=== PATIENT | female | born 1965 | race Caucasian/White ===

== ENCOUNTER → 2017-02-26 16:52 | Outpatient (CLI) | payer BC ==
[2014-12-25 13:51] VITALS: BMI 30.5
[~2017-02-26 16:52] MED LIST: AMBIEN5 MG PO; CLEOCIN HCL300 MG PO; COREG6.25 MG PO; COZAAR50 MG PO; FERREX 150 PLUS1 CAP PO; HYDROCODONE-APA1 TAB PO; K-TAB10 MEQ PO; LASIX20 MG PO; PERCOCET 10/3251 TA1 PO; PROZAC40 MG PO; ZERTEC; ZYRTEC10 MG PO
== END | disposition home or self-care (01) ==
LOC: D.MAMMO 15:45
DX: Z12.31 Encounter for screening mammogram for malignant neoplasm of breast (principal)

== ENCOUNTER 2017-09-17 15:31 | Emergency (ER) | payer BC ==
[2014-12-25 13:51] VITALS: BMI 30.5
[2017-09-17 16:28] LABS: BASOPHILS 0.1 % (0-2); EOSINOPHILS 0.5 % (0-7); HEMATOCRIT 41.4 % (36.0-48.0); HEMOGLOBIN 13.8 g/dL (12-16); IMMATURE GRANULOCYTES 0.4 % (0-5); LYMPHOCYTES 23.1 % (15-50); MCH 31.9 pg (26.0-34.0); MCHC 33.3 g/dL (31.0-37.0); MCV 95.8 fL (80.0-100.0); MEAN PLATELET VOLUME 11.4 fL (7.4-10.4); NEUTROPHILS 68.9 % (40-80); PLATELET COUNT 261 10x3/uL (130-400); RBC 4.32 10x6/uL (4.00-5.40); RDW 13.6 % (11.5-14.5); WBC 7.8 10x3/uL (4.8-10.8)
[2017-09-17 18:58] LABS: ALBUMIN 3.5 g/dL (3.4-5.0); ALKALINE PHOSPHATASE 103 U/L (46-116); ALT (SGPT) 82 U/L (10-68); CALC OSMOLALITY 273 mosm/kg (275-300); CALCIUM 9.1 mg/dL (8.5-10.1); CARBON DIOXIDE 23.5 mmol/L (21.0-32.0); CHLORIDE - SERUM 101 mmol/L (98-107); CREATINE KINASE 227 UL (21-215); CREATININE - SERUM 0.6 mg/dL (0.6-1.3); GLUCOSE 138 mg/dL (74-106); LIPASE 81 U/L (73-393); MAGNESIUM - SERUM 1.8 mg/dL (1.8-2.4); POTASSIUM - SERUM 5.5 mmol/L (3.5-5.1); PRO BNP 6636 pg/mL (0-125); PROTEIN - SERUM 7.9 g/dL (6.4-8.2); SODIUM 136 mmol/L (136-145); TROPONIN-I 0.017 ng/mL (0.000-0.060); UREA NITROGEN 13 mg/dL (7-18); eGFR NON AFRICAN AMERICAN > 90 mL/min (90-120)
[2017-09-17 19:00] LABS: CKMB 1.8 U/L (0.0-3.6)
== END 2017-09-17 19:50 | disposition home or self-care (01) ==
LOC: D.ER 15:31
PROVIDERS: Family Medicine
DX: I48.91 Unspecified atrial fibrillation (principal); I49.3 Ventricular premature depolarization

== ENCOUNTER 2019-06-17 01:31 | Observation (INO) | payer MEDICAID ==
[~2019-06-17] VITALS: Ht 157.5 cm; Wt 96.1 kg
[2019-06-17] VITALS (9 sets, daily range): BP systolic 114–177; BP diastolic 67–93; Ht 157.5 cm; Wt 96.1 kg
--- NOTE | ~2019-06-17 | HEMODYNAMI ---
PATIENT:GORGE MALDONADO MEDICAL RECORD: [id number] : 69 LOCATION:[facility] D.2116 ADMISSION DATE: 06/17/19 Generatedon:06/17/201914:39 Patient name: GORGE MALDONADO Patient #: [id number] SSN: [id number] : 1965 Date of study: 06/17/2019 Page: Of Hemodynamic Procedure Report Patient Data Patient Demographics Procedure consent was obtained First Name: GORGE Gender: Female Last Name: JOEL : 1965 Middle Initial: MOHAN Age: 53 year(s) Patient #: [id number] Race: SSN: [id number] Additional ID: [id number] Contact details Address: [place] [address] State: [place] City: [facility] Zip code: [address] Past Medical History Allergies Allergen Reaction Date Comments Reported Other allergy 06/17/2019 LATEX Admission Admission Data Admission Date: 06/17/2019 Admission Time: 3:06 Arrival Date: 06/17/2019 Arrival Time: 0:00 Room #: D.2117 Height (in.): 60.24 BSA: 1.9 (m2) Height (cm.): 153 BMI: 40.16 (kg/m2) Weight (lbs.): 207.24 Weight (kg.): 94 Lab Results Lab Result Date: 06/17/2019 Lab Result Time: 0:00 Biochemistry Name Units Result Min Max BUN mg/dl 23 --(----)-* 7 18 CK-MB ng/ml 4.1 --(----)*- 0 3.6 Creatinine mg/dl 1 --(--*-)-- 0.6 1.3 eGFR ml/min 61.83200 *-(----)-- 90 120 NONAFRICAN Troponin l ng/ml 0.251 --(----)-* 0 0.06 CBC Name Units Result Min Max Hematocrit % 36.4 *-(----)-- 42 54 Hemoglobin g/dl 11.8 *-(----)-- 13.5 17.5 Procedure Procedure Types Cath Procedure Diagnostic Procedure LHC Coronaries only Sedation Charges Moderate Sedation up to 15 minutes Procedure Description Procedure Date Procedure Date: 06/17/2019 Procedure Start Time: 14:26 Procedure End Time: 14:36 Procedure Staff Name Function Guillaume Wang MD Performing Physician Ciro Baptiste RT Monitor Deniz Powers RN Nurse Janeth Porras RT Scrub Procedure Data Cath Procedure Fluoroscopy Diagnostic fluoroscopy Total fluoroscopy Time: 4.3 time: 4.3 min min Diagnostic fluoroscopy Total fluoroscopy dose: dose: 282.15 mGy 282.15 mGy Contrast Material Contrast Material Type Amount (ml) Isovue 370 41 Entry Location Entry Primary Successful Side Size Upsize Upsize Entry Closure Succes sful Closure Location (Fr) 1 (Fr) 2 (Fr) Remarks Device Remarks Femoral Right 5 Fr 6 Fr Exoseal artery Short Diagnostic catheters Device Type Used For End Catheter Placement MULTIPACK Pigtail 5 Fr LV Angiography catheter MULTIPACK JL 4.0 5Fr Left Coronary catheter Angiography MULTIPACK 3DRC 5Fr Right Coronary catheter Angiography Procedure Complications No complications Procedure Medications Medication Administration Route Dosage 0.9% NaCl I.V. 100 ml/hr Oxygen etCO2 Nasal cannula 2 l/min Heparin Flush Bag added to field 2 bags (1000units/500ml NS) Lidocaine 2% added to field 20 Versed I.V. 2 mg Fentanyl I.V. 100 mcg Versed I.V. 1 mg Hemodynamics Rest BSA: 1.9 (m2) HGB: 11.8 (g/dl) O2 Consumption: Estimated: 258.4 (ml/min) O2 Cons umption indexed: Estimated:136 (ml/min/m) Heart Rate: 0 (bpm) Snapshots Pre Cath Intra NCS Post Cath Vital Signs Time Heart Resp SPO2 etCO2 NIBP (mmHg) Rhythm Pain Sedation Rate (ipm) (%) (mmHg) Status Level (bpm) 13:54:29 62 26 100 30.6 162/95(108) NSR 0 (11) 10(A) , No pain 13:59:00 54 14 98 26 127/83(111) NSR 0 (11) 10(A) , No pain 14:02:55 63 15 98 25.2 132/81(102) NSR 0 (11) 10(A) , No pain 14:06:55 60 15 98 25.2 131/72(103) NSR 0 (11) 10(A) , No pain 14:11:38 56 16 98 36.7 128/73(102) NSR 0 (11) 10(A) , No pain 14:16:10 59 15 98 36.7 140/76(100) NSR 0 (11) 10(A) , No pain 14:20:07 60 15 98 35.9 138/77(111) NSR 0 (11) 10(A) , No pain 14:24:03 58 14 99 15.3 132/86(108) NSR 0 (11) 10(A) , No pain 14:28:01 61 18 97 12.2 136/81(98) NSR 0 (11) 10(A) , No pain 14:31:58 58 12 98 14.5 111/70(90) NSR 0 (11) 9(A) , No pain 14:35:54 60 13 98 13.7 114/70(100) NSR 0 (11) 9(A) , No pain Medications Time Medication Route Dose Verified Delivered Reason Notes Eff ectiveness by by 13:52:33 0.9% NaCl I.V. 100 Deniz Deniz Per ml/hr Priya Powers physician RN RN 13:52:42 Oxygen etCO2 2 Deniz Deniz for low 02 Nasal l/min Lorigan Lorigan sats cannula RN RN 13:52:53 Heparin Flush added 2 Deniz Deniz used for Bag to bags Lorigan Priya procedure (1000units/500ml field RN RN NS) 13:53:04 Lidocaine 2% added 20ml Deniz Deniz for local to vial Lorigan Lorigan anesthetic field RN RN 14:20:37 Versed I.V. 2 mg Deniz Deniz for Lorigan Lorigan sedation RN RN 14:20:46 Fentanyl I.V. 100 Deniz Deniz for mcg Lorigan Lorigan sedation RN RN 14:28:01 Versed I.V. 1 mg Deniz Deniz for Lorigan Lorigan sedation RN clerical methods analyst Log Time Note 13:18:58 Informed consent obtained and on chart 13:27:15 Lab Result : CK-MB 4.1 ng/ml 13:27:15 Lab Result : Creatinine 1 mg/dl 13::15 Lab Result : BUN 23 mg/dl 13::15 Lab Result : eGFR NONAFRICAN 61.58707 ml/min 13::15 Lab Result : Troponin l 0.251 ng/ml 13::15 Lab Result : Hemoglobin 11.8 g/dl 13::15 Lab Result : Hematocrit 36.4 % 13:27:28 Procedure Status Urgent Heart Cath (IP). 13:27:31 Ciro Oliva RT(R) sent for patient. Start room use. 13::34 Time tracking: Regular hours (M-F 7:00 - 5:00) 13:27:40 Plan of Care:Hemodynamics will remain stable., Cardiac rhythm will remain stable., Comfort level will be maintained., Respiratory function will remain adequate., Patient/ family verbilizes understanding of procedure., Procedure tolerated without complication., Recovers from procedure without complications.. 13:28:44 ACC Patient presents with Stable Angina CCS Anginal Class 2--Slight limitation of ordinary activity. 13:29:03 Patient allergic to Other allergyLATEX 13:32:06 Risk of Mortality: 1.4 13:32:11 Risk of blood transfusion: 0.9 13:32:15 Risk of JORDAN: 2.3 13:32:22 Stress Test: no; N/A ? 13:32:28 Lab results completed and on chart. 13:33:15 Arrival Date: 06/17/2019 12:00:00 AM 13:33:30 Patient Height : 60.24 inches 13:33:35 Patient Weight : 207.24 lbs 13:36:22 Patient received from Med II to CCL 3 Alert and oriented. Tansferred to table in Supine position. 13:36:24 Warm blankets applied, and donna hugger turned on for patient comfort. 13:36:25 Correct patient and procedure confirmed by team. 13:36:26 ECG and BP/O2 sat monitors applied to patient. 13:52:33 0.9% NaCl 100 ml/hr I.V. was administered by Deniz Powers RN; Per physician; Verbal order read back and verified. 13:52:42 Oxygen 2 l/min etCO2 Nasal cannula was administered by Deniz Powers RN; for low 02 sats; Verbal order read back and verified. 13:52:53 Heparin Flush Bag (1000units/500ml NS) 2 bags added to field was administered by Deniz Powers RN; used for procedure; Verbal order read back and verified. 13:53:04 Lidocaine 2% 20ml vial added to field was administered by Deniz Poewrs RN; for local anesthetic; Verbal order read back and verified. 13:53:08 Vital chart was started 13:53:22 Baseline sample Acquired. 13:53:25 Rhythm: sinus rhythm 13:53:26 Full Disclosure recording started 13:53:41 H&P Date Dictated: 06/17/2019 Within 30 days and on chart.. 13:53:42 Pre-procedure instructions explained to patient. 13:53:42 Pre-op teaching completed and patient verbalized understanding. 13:53:44 Family in patients room. 13:53:45 Patient NPO since Midnight. 13:53:48 Is the patient allergic to Iodine/contrast media? No. 13:53:53 Is patient on blood thinner?No 13:53:58 Patient diabetic? Yes. 13:53:59 ----Pre-sedation anethsthesia assessment.---- 13:54:02 Snore? Yes 13:54:04 Sleep apnea? No 13:54:05 Deviated septum? No 13:54:06 Opens mouth fully? Yes 13:54:08 Sticks out tongue? Yes 13:54:10 Airway obstruction? No ? 13:54:17 Dentures? Yes IN TIGHT 13:54:22 Pre procedure: right dorsailis pedis pulse 2+ Normal; easily identifiable; not easily obliterated 13:54:27 Patient pain scale 0/10 ?. 13:54:31 IV patent on arrival in left hand with 0.9% NaCl at O. 13:54:37 Right groin area was prepped with chlora-prep and draped in sterile fashion 13:54:38 Alarms reviewed by R. N. 13:54:39 Sharps counted by scrub and verified by R.N. 13:55:55 2) 60-89 Mildly reduced kidney function, and other findings (as for stage 1) point to kidney disease. 13:56:29 Maximum allowable contrast dose (3.7 X eGFR X 0.75)172.05 ml. 14:20:05 Physician arrived 14:20: --------ALL STOP TIME OUT------ 14:20:06 Final Timeout: patient, procedure, and site verified with staff and physician. All members of the team are in agreement. 14:20:08 Right groin site verified by team. 14:20:11 Fire Safety Assessment: A--An alcohol-based skin anteseptic being used preoperatively., C--Open oxygen or nitrous oxide is being used., D--An ESU, laser, or fiber-optic light is being used. 14:20:15 Physical assessment completed. ASA score P 2 - A patient with mild systemic disease as per Guillaume Wang MD. 14:20:21 Sedation plan: IV Moderate Sedation Medication:Versed, Fentanyl 14:20:37 Versed 2 mg I.V. was administered by Deniz Powers RN; for sedation; Verbal order read back and verified. 14:20:46 Fentanyl 100 mcg I.V. was administered by Deniz Powers RN; for sedation; Verbal order read back and verified. 14:21:31 Zero performed for pressure channel P1 14:21:38 Use device set Femoral Dx 14:21:38 ACIST Syringe (20519) opened to sterile field. 14:21:39 Bag Decanter (2002S) opened to sterile field. 14:21:39 Medline Cath Pack ([id number]) opened to sterile field. 14:21:40 ACIST Hand Control (25600) opened to sterile field. 14:21:41 ACIST Manifold (22158) opened to sterile field. 14:21:41 DIAGNOSTIC Multipack 5Fr catheter set (DR1290) opened to sterile field. 14:21:42 Tegaderm 4 x 4 (1626W) opened to sterile field. 14:21:44 SHEATH 5FR Cherokee (RZT750) opened to sterile field. 14:21:44 EMERALD Guide Wire (939-312) opened to sterile field. 14:26:08 Procedure started. 14:26:21 Local anesthetic to right femoral artery with Lidocaine 2% by Guillaume Wang MD.INITIAL ACCESS ONLY 14:26:31 A 5 Fr sheath was inserted into the Right Femoral artery 14:27:17 Sheath upsized to a 6 Fr Short. 14:27:26 SHEATH 6FR Cherokee (WAU387) opened to sterile field. 14:27:32 A MULTIPACK Pigtail 5 Fr catheter was advanced over the wire and used for LV Angiography. 14:28:01 Versed 1 mg I.V. was administered by Deniz Powers RN; for sedation; Verbal order read back and verified. 14:31:33 Catheter exchanged over wire. 14:31:51 unable to cross valve 14:32:00 A MULTIPACK JL 4.0 5Fr catheter was advanced over the wire and used for Left Coronary Angiography. 14:32:03 LCA angiography performed. 14:33:21 Catheter removed. 14:33:27 A MULTIPACK 3DRC 5Fr catheter was advanced over the wire and used for Right Coronary Angiography. 14:33:31 RCA angiography performed. 14:34:35 Catheter removed. 14:34:44 EXOSEAL 6Fr (EX600) opened to sterile field. 14:34:59 Sheath removed intact; hemostasis achieved with Exoseal to the Right Femoral artery. 14:35:03 Contrast amount:Isovue 370 41ml. 14:35:05 Procedure ended.(Physican Out) 14:35:15 Fluoroscopy time 04.30 minutes. 14:35:25 Fluoroscopy dose: 282.15 mGy 14:35:25 Flurop Dose total: 282.15 14:35:31 Dose Area Product 14102 mGy/cm. 14:35:34 Maximum allowable dose exceeded? No. 14:35:35 Sharps counted by scrub and verified by R.N. 14:35:37 Insertion/operative site no bleeding no hematoma. 14:35:43 Post-op/insertion site Right Femoral artery dressed using a 4 x 4 and Tegaderm. 14:36:05 Post right femoral artery:stable 14:36:07 Post Procedure Pulses reassessed and unchanged 14:36:09 Post procedure: right dorsailis pedis pulse 2+ Normal; easily identifiable; not easily obliterated. 14:36:12 Post-procedure physical assessment completed. ASA score P 2 - A patient with mild systemic disease as per Guillaume Wang MD. 14:36:17 Post procedure rhythm: unchanged. 14:36:19 Post procedure instruction explained to patient.Patient verbalizes understanding. 14:36:21 Procedure and supply charges have been captured, reviewed, submitted and are correct. 14:36:28 Procedure type changed to Cath procedure, Diagnostic procedure, LHC, Coronaries only, Sedation Charges, Moderate Sedation up to 15 minutes 14:36:34 Procedure Complication : No complications 14:36:36 Vital chart was stopped 14:36:43 [facility] Findings: mild to moderate CAD (<70%) 14:36:46 Operative report dictated upon procedure completion. 14:36:47 See physician's report for complete and final results. 14:36:49 Report given to PCU. 14:36:52 Patient transfered to PCU with Bed. 14:36:53 Procedure ended. 14:36:53 Full Disclosure recording stopped 14:36:57 End room use (Document Last) Device Usage Item Name Manufacture Quantity Catalog Hospital Part Current Minimal L ot# / Number Charge Number Stock Stock Serial# Code ACIST Acist 1 78165 987455 299879 175629 20 Syringe Medical (13799) Systems Inc Bag Microtek 1 060162 50296 439244 5 Decanter Medical Inc. () Medline Medline 1 [id number] 973387 92139 077153 5 Cath Pack ([id number]) ACIST Hand Acist 1 11119 545652 318999 647641 5 Control Medical (82139) Systems Inc ACIST Acist 1 80854 277529 592295 546356 5 Manifold Medical (45480) Systems Inc DIAGNOSTIC Cardinal 1 YQ0776 001113 18439 238265 30 Multipack Health 5Fr catheter set (GJ6233) Tegaderm 4 3M 1 1626W 906218 722622 619127 5 x 4 (1626W) SHEATH 5FR Terumo 1 FNV343 570179 777190 240452 5 Cherokee (CPJ492) EMERALD Cardinal 1 502-455 517336 529429 769614 5 Guide Wire Health (502-455) SHEATH 6FR Terumo 1 UVN197 821140 370924 834063 40 Cherokee (YXJ017) MULTIPACK Cardinal 1 507545 5 Pigtail 5 Health Fr catheter MULTIPACK Cardinal 1 945324 5 JL 4.0 5Fr Health catheter MULTIPACK Cardinal 1 486214 5 3DRC 5Fr Health catheter EXOSEAL 6Fr Cardinal 1 EX600 438218 754021 524486 10 (EX600) Health Signature Audit [place] Stage Time Signature Unsigned Intra-Procedure 06/17/2019 Deniz 2:38:56 PM Priya BENJAMIN Intra-Procedure 06/17/2019 Ciro Baptiste RT(R) 2:39:21 PM Intra-Procedure 06/17/2019 Guillaume Wang 2:39:45 PM [facility] [address] [facility] [place] [address]
[2019-06-17 01:50] LABS: BASOPHILS 0.2 % (0-2); EOSINOPHILS 0.8 % (0-7); HEMATOCRIT 36.4 % (36.0-48.0); HEMOGLOBIN 11.8 g/dL (12-16); IMMATURE GRANULOCYTES 0.2 % (0-5); LYMPHOCYTES 21.4 % (15-50); MCH 30.1 pg (26.0-34.0); MCHC 32.4 g/dL (31.0-37.0); MCV 92.9 fL (80.0-100.0); MEAN PLATELET VOLUME 10.9 fL (7.4-10.4); NEUTROPHILS 72.4 % (40-80); RBC 3.92 10x6/uL (4.00-5.40); RDW 14.3 % (11.5-14.5)
[2019-06-17 01:51] LABS: PLATELET COUNT 334 10x3/uL (130-400)
[2019-06-17 01:56] LABS: CALC OSMOLALITY 283 mosm/kg (275-300); CALCIUM 8.7 mg/dL (8.5-10.1); CHLORIDE - SERUM 106 mmol/L (98-107); GLUCOSE 127 mg/dL (74-106); POTASSIUM - SERUM 4.3 mmol/L (3.5-5.1); SODIUM 139 mmol/L (136-145); UREA NITROGEN 23 mg/dL (7-18); eGFR NON AFRICAN AMERICAN 62 mL/min (90-120)
[2019-06-17 01:59] LABS: APTT 24.7 SECONDS (22.8-39.4); INR 1.1 (0.85-1.17); PROTIME 14.2 SECONDS (11.6-15.0)
--- NOTE | 2019-06-17 02:04 | NUR ---
PT REPORTS PAIN DECREASED FROM 6/10 TO 3/10 AFTER FIRST SL NITRO. SECOND SL NITRO OFFERED, HOWEVER, PT REFUSED MEDICATION ADMINISTRATION. STATES "I DON'T WANT ANOTHER, IT MADE MY MOUTH BURN." EDP NOTIFIED.
[2019-06-17 02:17] LABS: ALBUMIN 3.1 g/dL (3.4-5.0); ALKALINE PHOSPHATASE 86 U/L (30-120); ALT (SGPT) 30 U/L (10-68); BILIRUBIN - TOTAL 0.28 mg/dL (0.2-1.3); CKMB 2.1 U/L (0.0-3.6); CREATINE KINASE 98 UL (21-215); MAGNESIUM - SERUM 1.9 mg/dL (1.8-2.4); PROTEIN - SERUM 7.4 g/dL (6.4-8.2)
[2019-06-17 02:19] LABS: TROPONIN-I 0.137 ng/mL (0.000-0.060)
--- NOTE | 2019-06-17 03:40 | NUR ---
FROM ER VIA WC TO BED LOW AND LOCKED TELEMETRY APPLIED
[2019-06-17 04:11] LABS: CKMB 4.1 U/L (0.0-3.6); CREATINE KINASE 115 UL (21-215)
[2019-06-17 04:13] LABS: TROPONIN-I 0.251 ng/mL (0.000-0.060)
[2019-06-17 09:34] LABS: CHOL - HDL RATIO 3.1 ratio (2.3-4.1); LDL-HDL RATIO 1.5 ratio (1.5-3.5)
--- NOTE | 2019-06-17 09:52 | NUR ---
NO C/O C/P NOTED. CONSENTS SIGNED FOR [facility]. WILL CONT. PLAN OF CARE.
[2019-06-17 10:11] LABS: CKMB 19.1 U/L (0.0-3.6); CREATINE KINASE 167 UL (21-215)
[2019-06-17 10:15] LABS: TROPONIN-I 3.291 ng/mL (0.000-0.060)
--- NOTE | 2019-06-17 13:33 | NUR ---
PRE-OPS GIVEN. TO BAIT MAN BY BED.
--- NOTE | 2019-06-17 15:08 | NUR ---
BACK FROM SHRINK PIT SUPERVISOR. VS WNL. RIGHT GROIN STABLE WITHOUT BLEEDING OR HEMATOMA NOTED. WILL MONITOR.
--- NOTE | 2019-06-17 15:49 | NUR ---
PRE-OPS GIVEN. TO GI LAB BY BED.
--- NOTE | 2019-06-17 17:12 | NUR ---
BED REST UP. GROIN STABLE.
--- NOTE | 2019-06-17 20:13 | NUR ---
INITIAL ROUNDS COMPLETED AT 1915HRS. PT RESTING WITH EYES CLOSED. RESP EVEN AND REGULAR. ASSESSMENT COMPLETED AT 1950 HRS. PT AWAKES EASILY TO VERBAL STIMULI. ORIENTED TO PERSON, PLACE AND TIME. PANDYA. R GROIN DRESSING CLEAN,DRY AND INTACT. NO BLEEDING, SWELLING OR BRUISING NOTED. PALPABLE PERIPHERAL PULSES. EXTREMITES WARM TO TOUCH. IV TO L HAND SL. DENIES ANY DISCOMFORT. SR UP X2, CALL LIGHT WITHIN REACH.
--- NOTE | 2019-06-17 22:00 | NUR ---
PT UP TO BR. NO DISTRESS NOTED. SR UP X1, CALL LIGHT WITHIN REACH.
--- NOTE | 2019-06-18 00:09 | NUR ---
PT RESTING WITH EYES CLOSED. RESP EVEN AND REGULAR. SR UP X1, CALL LIGHT WITHIN REACH.
[2019-06-18 00:30] VITALS: BP 123/91
--- NOTE | 2019-06-18 02:16 | NUR ---
PT RESTING WITH EYES CLOSED. RESP EVEN AND REGULAR. SR UP X1, CALL LIGHT WITHIN REACH.
--- NOTE | 2019-06-18 04:28 | NUR ---
PT RESTING WITH EYES CLOSED. RESP EVEN AND REGULAR. SR UP X1, CALL LIGHT WITHIN REACH.
[2019-06-18 04:30] VITALS: BP 127/80
[2019-06-18 04:58] LABS: BASOPHILS 0.1 % (0-2); EOSINOPHILS 0.7 % (0-7); HEMATOCRIT 34.1 % (36.0-48.0); HEMOGLOBIN 10.8 g/dL (12-16); LYMPHOCYTES 28.1 % (15-50); MCH 29.3 pg (26.0-34.0); MCHC 31.7 g/dL (31.0-37.0); MCV 92.7 fL (80.0-100.0); MEAN PLATELET VOLUME 11.2 fL (7.4-10.4); MONOCYTES 8.6 % (2-11); NEUTROPHILS 62.5 % (40-80); PLATELET COUNT 289 10x3/uL (130-400); RBC 3.68 10x6/uL (4.00-5.40); RDW 14.1 % (11.5-14.5); WBC 7.4 10x3/uL (4.8-10.8)
[2019-06-18 05:28] LABS: CALC OSMOLALITY 280 mosm/kg (275-300); CALCIUM 8.2 mg/dL (8.5-10.1); CARBON DIOXIDE 25.5 mmol/L (21.0-32.0); CHLORIDE - SERUM 106 mmol/L (98-107); CREATININE - SERUM 0.8 mg/dL (0.6-1.3); GLUCOSE 108 mg/dL (74-106); MAGNESIUM - SERUM 1.8 mg/dL (1.8-2.4); POTASSIUM - SERUM 4.2 mmol/L (3.5-5.1); SODIUM 138 mmol/L (136-145); UREA NITROGEN 23 mg/dL (7-18); eGFR NON AFRICAN AMERICAN 80 mL/min (90-120)
--- NOTE | 2019-06-18 06:22 | NUR ---
VSS THROUGHOUT NIGHT. PT STATED SHE RESTED WELL DURING NIGHT. NO CHANGES TO R GROIN NOTED. NEEDS MET; WILL CONTINUE TO MONITOR.
[2019-06-18 08:00] VITALS: BP 120/78
[2019-06-18] MEDS ORDERED: ENTRESTO 24 MG1 EACH PO (14:22)
--- NOTE | 2019-06-18 16:49 | MORECARE ---
CASE MANAGEMENT DISCHARGE SUMMARY PATIENT: GORGE MALDONADO UNIT: [id number] ADM DATE: 06/17/19 AGE: 53 : [birth year] SEX: F ROOM/BED: D.8315 AUTHOR: SERGIO VELASCO PHYSICIAN: REFERRING PHYSICIAN: ABDOUL BARRETT DO DATE OF SERVICE: 06/18/19 Discharge Plan Patient Name: GORGE MALDONADO Facility: [facility]:[place] : 1965 Planned Disposition: Anticipated Discharge Date: Discharge Date: Expected LOS: Initial Reviewer: [email or web address] Initial Review Date: 06/17/2019 Generated: 06/18/19 5:48 pm Comments DCP- Discharge Planning Updated by [email or web address]: Cathy Heath on 06/18/19 3:[address] Patient Name: GORGE MALDONADO Admission Status: ER Accout number: [id number] Admission Date: 06-17-2019 : 1965 Admission Diagnosis: Attending: ABDOUL BARRETT Current LOS: 1 Anticipated DC Date: Planned Disposition: Primary Insurance: MEDICAID [place] PENDING Discharge Planning Comments: CM GAVE PATIENT A FREE TRIAL PACKET FOR ENTRESTO AND A 10 DOLLAR COPAY CARD. PATIENT IS GERALD PENDING AT THIS TIME. PATIENT PLANS TO DC TO HOME TODAY. Environmental Communications Specialist: Cathy Heath Patient Name: GORGE MALDONADO Page 23554 at 1649 All edits/amendments must be made on the electronic document DICTATION DATE: 06/18/191647 SEWAGE DISPOSAL WORKER: NASIM 06/18/191647 RPT#: [id number] DC DATE: STATUS: ADM IN [facility] [address] [place] [address] END OF REPORT
--- NOTE | 2019-06-18 18:25 | NUR ---
IV AND TELEMETRY DCD. DC PLANS GIVEN. UNDERSTANDING VOICED. ESCORTED TO CAR BY W/C.
--- NOTE | 2019-06-19 11:46 | MORECARE ---
CASE MANAGEMENT DISCHARGE SUMMARY PATIENT: GORGE MALDONADO UNIT: [id number] ADM DATE: 06/17/19 AGE: 53 : [birth year] SEX: F ROOM/BED: D.7161 AUTHOR: SERGIO VELASCO PHYSICIAN: REFERRING PHYSICIAN: ABDOUL BARRETT DO DATE OF SERVICE: 06/19/19 Discharge Plan Patient Name: GORGE MALDONADO Facility: [facility]:[place] : 1965 Planned Disposition: Anticipated Discharge Date: Discharge Date: 06/18/2019 Expected LOS: Initial Reviewer: [email or web address] Initial Review Date: 06/17/2019 Generated: 06/19/19 12:45 pm Comments DCP- Discharge Planning Updated by [email or web address]: Cathy Heath on 06/18/19 3:[address] Patient Name: GORGE MALDONADO Admission Status: ER Accout number: [id number] Admission Date: 06-17-2019 : 1965 Admission Diagnosis: Attending: ABDOUL BARRETT Current LOS: 1 Anticipated DC Date: Planned Disposition: Primary Insurance: MEDICAID [place] PENDING Discharge Planning Comments: CM GAVE PATIENT A FREE TRIAL PACKET FOR ENTRESTO AND A 10 DOLLAR COPAY CARD. PATIENT IS GERADL PENDING AT THIS TIME. PATIENT PLANS TO DC TO HOME TODAY. Drafter Assistant: Cathy Gmaing DP export: 06/18/19 3:49 p Patient Name: GORGE MALDONADO Page 78041 at 1146 All edits/amendments must be made on the electronic document DICTATION DATE: 06/19/19 1145 AIRLINE FLIGHT ATTENDANT: NASIM 06/19/19 1145 RPT#: [id number] DC DATE:06/18/19 STATUS: DIS IN [facility] [address] [place] [address] END OF REPORT
--- NOTE | 2019-06-20 11:54 | EC ---
PATIENT:GORGE MALDONADO DATE OF SERVICE: 06/17/19 SEX: F MEDICAL RECORD: [id number] DATE OF : [birth year] LOCATION:D.M2 D.211 AGE OF PATIENT: 53 ADMISSION DATE: 06/17/19 REFERRING PHYSICIAN: INTERPRETING PHYSICIAN: BRAULIO WANG MD ECHOCARDIOGRAM REPORT ECHO CHARGES 5 ECHO LIMITED Date: 06/17/19 CLINICAL DIAGNOSIS: CHF ECHOCARDIOGRAPHIC MEASUREMENTS (adult normal given) AC root (d.<3.7cm) 0 cm LV Septum d (<1.2 cm> 0 cm Valve Excursion 0 cm LV Septum (systole) 0 cm Left Atria (s.<4.0cm> 0 cm LVPW d(<1.2cm) 0 cm RV (d.<2.3cm) 0 cm LVPW (sytole) 0 cm LV diastole(<5.6CM) 0 cm MV E-F(>70mm/sec) cm LV systole 0 cm LVOT Diameter 1.5 cm MV exc.(>10mm) cm Est.ejection fraction (50-75%) % DOPPLER: LVIT cm/sec A 0 cm/sec E 0 cm/sec LA 0 cm/sec RVSP 0 mmHg LVOT 0 cm/sec AOP1/2T 0 m/s Asc. Ao 0 cm/sec RVOT 0 cm/sec RA 0 cm/sec PA 0 cm/sec AV Gradient Peak 0 mmHg AV Mean 0 mmHg AV Area 0 cm MV Gradient Peak 0 mmHg MV Mean 0 mmHg MV Area 0 cm COMMENTS: Home Economics Extension Worker: Ryan LYNN Sewing Machine Tester: Marlen Wang TAPE# PACS Pericardial Effusion N DATE OF SERVICE: FINDINGS: 1. Left ventricular chamber size is dilated. Left ventricular systolic function is moderately reduced at 30%. 2. Left atrium, right atrium, and right ventricular chamber sizes are dilated giving 4-chamber dilatation. 3. Valvular structures have normal structure and motion. 4. Doppler interrogation reveals trace aortic insufficiency, trace mitral regurgitation, severe tricuspid regurgitation, no other valvular insufficiency ECHOCARDIOGRAM REPORT [id number] GORGE MALDONADO or stenosis. 5. No evidence of pericardial effusion or left ventricular thrombus. TRANSINT:[id number] Voice Confirmation ID: [id number] DOCUMENT ID: [id number] BRAULIO WANG MD at 1145 CC: [id number] DICTATION DATE: 06/17/19 1514 MARKET GARDENER: 06/18/19 0031 DIS IN 06/18/19 [facility] [address] [id number]
--- NOTE | 2019-06-20 11:54 | OP ---
PATIENT NAME: GORGE MALDONADO MEDICAL RECORD: [id number] :69 LOCATION:D.M2 D.2117 ADMISSION DATE:06/17/19 SURGEON: BRAULIO MARTIN MD DATE OF OPERATION: 06/17/2019 PROCEDURIS: Selective coronary angiography. INDICATION: Non-Q-wave myocardial infarction. PROCEDURE IN DETAIL: After informed consent was obtained and after a detailed description of risks, benefits as well as alternative therapies, the patient elected to proceed with angiogram and heart catheterization. FINDINGS: The right femoral area was prepped and draped in normal sterile fashion. The right femoral artery was cannulated via modified Seldinger technique with placement of 6-Slovak sheath. FINDINGS: The left ventriculogram cannot be performed due to inability to cross the aortic valve. Echocardiogram will be obtained. SELECTIVE CORONARY ANGIOGRAPHY: Left main, left anterior descending, left circumflex, right coronary are all smooth-walled vessels with no angiographic evidence of coronary artery disease. OVERALL IMPRESSION: No angiographic evidence of coronary artery disease. We will get an echocardiogram to obtain LV function as well as the aortic valvular anatomy. TRANSINT:[id number] Voice Confirmation ID: [id number] DOCUMENT ID: [id number] BRAULIO MARTIN MD at 1154 CC: [id number] DICTATION DATE: 06/17/19 1441 BARN MANAGER: 06/18/19 0046 DIS IN 06/18/19 [facility] [address] [place] [address]
== END 2019-06-18 18:26 | disposition home or self-care (01) ==
LOC: D.ER 01:31 → D.M2 03:06 → OBSVTIME 03:06 → D.M2 06-18 18:26
PROVIDERS: Emergency Medicine; Internal Medicine Interventional Cardiology; ADMIT Family Medicine; ATTEND Family Medicine
DX: I21.4 Non-ST elevation (NSTEMI) myocardial infarction (principal); I11.0 Hypertensive heart disease with heart failure; I50.9 Heart failure, unspecified; D64.9 Anemia, unspecified; M19.90 Unspecified osteoarthritis, unspecified site; M48.00 Spinal stenosis, site unspecified; I20.0 Unstable angina; G89.29 Other chronic pain

== ENCOUNTER → 2019-07-01 10:51 | Outpatient (CLI) | payer MEDICAID ==
[2019-06-17 14:04] VITALS: BMI 38.8
[~2019-07-01 10:51] MED LIST changes: +ENTRESTO 24 MG1 EACH PO
--- NOTE | 2019-07-05 08:31 | EC ---
PATIENT:GORGE MALDONADO DATE OF SERVICE: 07/01/19 SEX: F MEDICAL RECORD: [id number] DATE OF : [birth year] LOCATION:D.[facility] AGE OF PATIENT: 53 ADMISSION DATE: 07/01/19 REFERRING PHYSICIAN: INTERPRETING PHYSICIAN: VERONICA NELSON MD ECHOCARDIOGRAM REPORT ECHO CHARGES 4 ECHO COMPLETE Date: 07/01/19 CLINICAL DIAGNOSIS: HX OF CARDIOMYOPATHY/AORTIC STENOSIS/HTN/AFIB ECHOCARDIOGRAPHIC MEASUREMENTS (adult normal given) AC root (d.<3.7cm) 3.0 cm LV Septum d (<1.2 cm> 1.6 cm Valve Excursion 1.6 cm LV Septum (systole) 1.7 cm Left Atria (s.<4.0cm> 4.7 cm LVPW d(<1.2cm) 1.4 cm RV (d.<2.3cm) 4.9 cm LVPW (sytole) 1.9 cm LV diastole(<5.6CM) 5.8 cm MV E-F(>70mm/sec) cm LV systole 4.8 cm LVOT Diameter 1.9 cm MV exc.(>10mm) 1.4 cm Est.ejection fraction (50-75%) % DOPPLER: LVIT cm/sec A 42.0 cm/sec E 103.0 cm/sec LA cm/sec RVSP 77 mmHg LVOT 161 cm/sec AOP1/2T m/s Asc. Ao 291 cm/sec RVOT 72 cm/sec RA cm/sec PA 128 cm/sec AV Gradient Peak 33.87mmHg AV Mean 19.83mmHg AV Area 1.7 cm MV Gradient Peak 7.87 mmHg MV Mean 2.24 mmHg MV Area cm COMMENTS: Small Piece Cutter: 2 NARINDER PAN Jewelry Technician: 3 Dr. Ferreira TAPE# PACS Pericardial Effusion N DATE OF SERVICE: Adequate 2D, color flow imaging, spectral Doppler, and M-mode. LVH is present. LV internal dimension is upper limits of normal, mildly dilated at 5.3 cm. LV wall motion mildly globally hypokinetic with reduced EF, estimated EF 40-45%. Aortic valve is calcified with restriction of leaflet motion. Peak gradient of 33 mmHg putting this in moderate range. Left atrium is dilated at 4.7 cm. Mitral valve shows no prolapse. Mild MR. Right-sided chambers are grossly normal. Akxk-pb-hqyuetiz TR. ECHOCARDIOGRAM REPORT [id number] GORGE MALDONADO TRANSINT:[id number] Voice Confirmation ID: [id number] DOCUMENT ID: [id number] VERONICA NELSON MD at 0831 CC: [id number] DICTATION DATE: 07/04/19 1308 LEADLIGHTER: 07/05/19 0006 DEP CLI 07/01/19 [place] [id number] [place] [id number]
== END | disposition home or self-care (01) ==
LOC: D.HCCECHO 06-10 09:30
PROVIDERS: ATTEND Internal Medicine Interventional Cardiology
DX: I42.9 Cardiomyopathy, unspecified (principal)